=== PATIENT | male | born 1980 | race Caucasian/White ===

== ENCOUNTER 2025-04-30 08:03 | Emergency (ER) | payer OTHER, SELFPAY ==
[2025-04-30 08:19] VITALS: BP 138/104
[2025-04-30 08:30] VITALS: BP 120/82
[2025-04-30 08:38] VITALS: BMI 35.6
[2025-04-30 09:00] VITALS: BP 127/89
--- NOTE | 2025-04-30 09:14 | ED.GENMED ---
History of Present Illness
General
Chief Complaint: Heart Rate Problem
Time Seen by Provider: 04/30/25 08:28
History of Present Illness
History of Present Illness:
Patient presents to the emergency department with shortness of breath and atrial fibrillation. States he has a history of paroxysmal atrial fibrillation. He very infrequently goes into it. He is not on any medication.. Yesterday he felt more
short of breath than usual with minimal exertion. This morning he felt palpitations and once again felt short of breath. Denies chest pain or pressure. Denies leg swelling. Denies fevers or chills denies orthopnea.
Phy Exam
Physical Exam
Physical Exam:
GENERAL APPEARANCE: NAD, well developed/ well nourished
EYES lids/conjunctiva normal
EARS/NOSE/THROAT Mucous membranes moist, uvula midline without oral pharyngeal erythema, exudate or swelling
HEAD/NECK normocephalic atraumatic, neck is supple, no JVD
RESPIRATORY respiratory effort normal, speaks in full sentences, no accessory muscle use. Lungs clear to auscultation without rhonchi, wheezes, rales
CARDIAC Regular rate and rhythm, no edema.
ABDOMINAL Soft, ND/NT.
MUSCLES/EXTREMITIES No abnormal range of motion, no swelling.
SKIN Warm, pink and dry. No rashes
NEUROLOGICAL Speech is clear and appropriate. Normal level of consciousness. 5/5 strength in all extremities.
PSYCH Normal mood and affect. Judgement/competence is appropriate
Course
Orders/Labs/Results
Orders:
Orders
04/30/25 08:19
Electrocardiogram (*1) Urgent
Reason for Study: Atrial Fibrillation
EKG- Treatment ONCE
04/30/25 08:43
Cardiac Monitoring- Treatment ONCE
IV Insert/Care/Rem.- Treatment PRN
04/30/25 08:58
Complete Blood Count/With Diff Urgent
04/30/25 08:59
Urinalysis Reflex To Culture Urgent
Date Specimen was Collected: 04/30/25
Time Specimen was Collected: 08:58
04/30/25 09:12
CR Chest - 2 Views Urgent
Comment:
Reason For Exam: sob
04/30/25 09:16
D-Dimer Urgent
04/30/25 09:18
Add On- LAB Urgent
Comments:: tube in lab
Tests Added?: PRO BNP
04/30/25 10:18
Basic Metabolic Panel Urgent
NT-proBNP Urgent
Comment: ADD ON
Troponin I Urgent
Abnormal Lab Results
04/30/25 04/30/25
08:58 10:18
WBC 4.3 L 10^3/uL
(4.8-10.8)
MPV 11.9 H fL
(7.4-10.4)
Absolute Lymphs (auto) 1.1 L 10^3/uL
(1.2-3.4)
Chloride 108 H mmol/L
(98-107)
04/30/25 08:58
04/30/25 10:18
Vital Signs
Initial and Last Documented VS:
Initial Vital Signs
Temp Pulse Resp Pulse Ox
98.2 F 78 18 97
04/30/25 08:14 04/30/25 08:14 04/30/25 08:14 04/30/25 08:14
Last Documented Vital Signs
Temp Pulse Resp BP Pulse Ox
98.2 F 48 15 104/74 95
04/30/25 08:14 04/30/25 11:00 04/30/25 11:00 04/30/25 11:00 04/30/25 11:00
*Pulse Oximetry
SaO2: 95
Oxygen Mode of Delivery: Room air
Patient hypoxic: no
*Critical Care Note
Total Time (30-74mins, 75-104mins- exclusive of procedures): Not Applicable
ED Attending Note
ED Attending Note
ED Attending Note:
Patient presents with symptomatic paroxysmal atrial fibrillation and an episode of A-fib with RVR. He self converted into a sinus rhythm upon arriving to the emergency department. His workup is largely negative. [id number] of 0 points, low risk
of stroke, will not anticoagulate at this time. 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
-
Portions of this chart may have been created with voice recognition software.� Occasional wrong word or��sound alike� substitutions may have occurred due to the inherent limitations of voice recognition software.
Discharge Plan
Departure
Patient Disposition: Home (Routine Discharge)
Date of Disposition: 04/30/25
Time of Disposition: 11:07
Patient with high blood pressure during this ER visit?: No
Discharge Problem:
AF (paroxysmal atrial fibrillation)
Instructions: Atrial Fibrillation (DC)
Referrals:
UNKNOWN - PT DOES,NOT KNOW [Family Provider]
Activity Restrictions/Additional Instructions:
Please schedule close outpatient follow up with your kraft mill operator
Return to ER with new or worsening symptoms
Interventions
Interventions:
*Risk Screen - Suicide Last Done: 04/30/25 08:14
*General Assessment Last Done: 04/30/25 08:40
*Neglect/Abuse Screening Last Done: 04/30/25 08:14
*ED COVID-19 Vaccine History Last Done: 04/30/25 08:40
*ED Influenza Vaccine History Last Done: 04/30/25 08:40
[facility] Risk Assessment Tool Last Done: 04/30/25 08:39
*Nursing Disposition Last Done: 04/30/25 11:45
ED- Cardiac Assessment Last Done: 04/30/25 08:40
ED- Pulmonary Assessment Last Done: 04/30/25 08:40
Discharge Date and Time
Discharge Date/Time: 04/30/25 11:45
Print Language: SLOVAK
[2025-04-30 09:28] LABS: Hematocrit 43.1 % (39.0-52.0); Hemoglobin 14.7 g/dL (13.0-18.0); Mean Corp Hgb Conc. 34.1 g/dL (33.0-37.0); Mean Corpuscular Volume 86.9 fL (80.0-94.0); Nucleated Red Blood Cells % 0 % (-); Platelet Count 189 10^3/uL (130-400); Red Cell Dist. Width 13.3 % (11.5-14.5)
[2025-04-30 09:33] LABS: Urine Character Clear (Clear)
[2025-04-30 09:53] LABS: D-Dimer < 0.27 ug/mlFEU (0.00-0.50)
[2025-04-30 10:00] VITALS: BP 126/94
--- NOTE | 2025-04-30 10:23 | EDRN ---
SST and Trop blood were just called by lab as hemolyzed at 10:05 and were redrawn and resent at this time.
[2025-04-30 10:31] LABS: Glucose - Point of Care 96 mg/dl (70-99)
[2025-04-30 10:56] LABS: Blood Urea Nitrogen 15 mg/dl (9-20); Calcium 9.8 mg/dl (8.4-10.2); Carbon Dioxide 24 mmol/L (22-30); Chloride 108 mmol/L (98-107); Estimated Creatinine Clearance > 125 ml/min; Glucose 96 mg/dl (70-99); Sodium 138 mmol/L (135-145); eGFR > 60.00
[2025-04-30 11:00] VITALS: BP 104/74
[2025-04-30 11:03] LABS: Troponin I 0.015 ng/ml
--- NOTE | 2025-04-30 11:13 | EDRN ---
Dr. Nunez in room w/ pt.
== END 2025-04-30 11:45 | disposition home or self-care (01) ==
LOC: EMR 08:03
PROVIDERS: Emergency Medicine; EMERGENCY PHYSICIAN Emergency Medicine
DX: I48.0 Paroxysmal atrial fibrillation (principal)
CPT/HCPCS: 99284; 71046; 80048; 81003; 82962; 83880; 84484; 85025; 85379; 93005